=== PATIENT | male | born 1990 | race Caucasian/White ===

== ENCOUNTER 2019-11-03 21:56 | Emergency (ER) | payer SELFPAY ==
[~2019-11-03] VITALS: Ht 175.3 cm; Wt 95.5 kg
[2019-11-04] MEDS ORDERED: TETanus/Pertussis (Acell)/Diphther VAC/PF (Tdap-Adult) 0.5ml syringe IMVAC ONE
--- NOTE | 2019-11-04 18:13 | NUR ---
Patient was released from senior care this morning. Patient called at home and left a voice mail message to call ED back. Patient had some results from xray and need for follow up. Call for [facility].
== END 2019-11-04 00:13 ==
LOC: ER 21:56
DX: S09.90XA Unspecified injury of head, initial encounter (principal); M25.511 Pain in right shoulder; Z72.89 Other problems related to lifestyle; Z79.899 Other long term (current) drug therapy; X58.XXXA Exposure to other specified factors, initial encounter; Y93.89 Activity, other specified; Y92.89 Other specified places as the place of occurrence of the external cause; Y99.8 Other external cause status
CPT/HCPCS: 70450; 73030; 90471; 90715; 99284

== ENCOUNTER 2021-03-14 01:29 | Emergency (ER) | payer MEDICAID ==
[~2021-03-14] VITALS: Ht 182.9 cm; Wt 95.0 kg
--- NOTE | 2021-03-14 04:17 | NUR ---
PT ROOMED IN BED 11. ASSUMED CARE OF PT. DR SHERMAN AT BEDSIDE
[2021-03-14 04:25] VITALS: BP 149/83
[2021-03-14] MEDS ORDERED: amox tr/potassium clavulanate 875/125mg TAB PO ONE (04:35)
[2021-03-14] MEDS ORDERED: LIDOcaine 1% W/epiNEPHrine 1:200,000 10ml vial IJ ONE (04:40)
[2021-03-14 04:51] LABS: BASOPHILS # (AUTO) 0.1 X10'3 (0-0.2); BASOPHILS % (AUTO) 0.7 % (0-1); EOSINOPHILS # (AUTO) 0.1 X10'3 (0-0.9); EOSINOPHILS % (AUTO) 0.7 % (0-6); HEMATOCRIT 37.9 % (42.0-52.0); HEMOGLOBIN 12.7 g/dl (14.0-17.9); LYMPHOCYTES # (AUTO) 2.3 X10'3 (1.1-4.8); LYMPHOCYTES % (AUTO) 14.5 % (21-51); MEAN CORPUSCULAR HEMOGLOBIN 30.6 PG (27.0-31.0); MEAN CORPUSCULAR HGB CONC 33.5 g/dL (33.0-36.5); MEAN CORPUSCULAR VOLUME 91.5 FL (78-98); MEAN PLATELET VOLUME 7.7 FL (7.4-10.4); MONOCYTES # (AUTO) 1.7 X10'3 (0-0.9); MONOCYTES % (AUTO) 10.9 % (2-12); NEUTROPHILS # (AUTO) 11.7 X10'3 (1.8-7.7); NEUTROPHILS % (AUTO) 73.2 % (42-75); PLATELET COUNT 359 X10'3 (140-440); RED BLOOD COUNT 4.14 X10'6 (4.70-6.10); RED CELL DISTRIBUTION WIDTH 14.2 % (11.5-14.5)
[2021-03-14 04:59] LABS: ALBUMIN 3.8 G/DL (3.4-5.0); ANION GAP 11 (8-16); BLOOD UREA NITROGEN 14 MG/DL (7-18); BUN/CREATININE RATIO 14.9 (5.4-32.0); CALCIUM 9.7 MG/DL (8.5-10.1); CHLORIDE 103 MMOL/L (99-107); CREATININE 0.94 MG/DL (0.60-1.10); GLUCOSE 120 MG/DL (70-104); POTASSIUM 3.7 MMOL/L (3.5-5.1); SODIUM 141 MMOL/L (135-145); TOTAL CARBON DIOXIDE 27.5 MMOL/L (24-32); eGFR > 90 ML/MIN
[2021-03-14] MEDS ORDERED: LIDOcaine 1% w/epiNEPHrine 1:200,000 30ml vial IJ ONE (05:00)
[2021-03-14] MEDS ORDERED: LIDOcaine 1% W/epiNEPHrine 1:100,000 20ml vial ONE (05:10)
[2021-03-14] MEDS ORDERED: cephalexin 250mg capsule PO ONE (05:15)
[2021-03-14] MEDS ORDERED: sulfamethoxazole/trimethoprim DS (800/160mg) tablet PO ONE (05:15)
[2021-03-14] MEDS ORDERED: CLIN300C63 PO (05:37)
== END 2021-03-14 06:20 | disposition left against medical advice (07) ==
LOC: ER 01:29
DX: L02.414 Cutaneous abscess of left upper limb (principal); L03.114 Cellulitis of left upper limb; M25.532 Pain in left wrist; Z72.89 Other problems related to lifestyle; Z88.6 Allergy status to analgesic agent; Z79.2 Long term (current) use of antibiotics
CPT/HCPCS: 10060; 36415; 80048; 83605; 85025; 99284; J3490; 99283

== ENCOUNTER 2022-04-06 01:14 | Emergency (ER) | payer MEDICAID ==
[~2022-04-06] VITALS: Ht 177.8 cm; Wt 90.3 kg
[2022-04-06 01:24] VITALS: BP 146/92
--- NOTE | 2022-04-06 01:59 | NUR ---
abbyant and will not answer questions.
== END 2022-04-06 02:00 ==
LOC: ER 01:15
DX: Z88.6 Allergy status to analgesic agent
CPT/HCPCS: 99283